=== PATIENT | male | born 1935 | race Caucasian/White ===

== ENCOUNTER 2016-12-13 12:11 | Emergency (ER) | payer MEDICARE, OTHER ==
--- NOTE | 2016-12-14 19:43 | ER ---
ADMIT: 12/13/2016 RM/LOC: ER [facility] MR#: [id number] [address] [address] ADDIE GERONIMO [address] [place] [address] Emergency Room Report SEX: M AGE: 81 : 1935 DATE: 12/13/2016 TIME: 1211 hours. Please refer to my T-sheet for complete H and P. HISTORY OF PRESENT ILLNESS: Briefly, the patient is an 81-year-old, comes in for a fall today. He actually fell 2 weeks ago, bruised his chest. He had an x-ray that was negative at that time. He was going to the bathroom, his significant other was helping him when he fell again today hurt his leg. He has been able to walk on it, but she wanted him evaluated. He is anticoagulated, but did not hit his head or neck. PHYSICAL EXAMINATION: VITAL SIGNS: Blood pressure 107/42, pulse 95, respirations 18, temp 98.7, and sat 97%. GENERAL: He is in no acute distress. HEENT: Grossly normal. LUNGS: Clear. Chest wall, he is tender on the left anterior axillary line of his chest. He has no wheezes, good air movement, no severe crepitance is noted. ABDOMEN: Soft, nontender. EXTREMITIES: His left leg has a contusion posterior in his knee extending distally as knee seems intact. He is neurovascularly intact distally. NEUROLOGIC: Alert and oriented, nonfocal. EMERGENCY DEPARTMENT COURSE: CBC was normal except hemoglobin 11.4. Chemistries normal except creatinine 2.2, which is stable for him. UA was normal. Calcium was 7.9. His INR was unable to register on our machine, they say the machine does this at times, we repeated it same answer. His troponin was negative. EKG was AFib, rate 83, no changes. I had a long discussion with him. We are going to hold his Coumadin until he follows up. He was able to walk in the Emergency Department. His x-ray of his chest revealed atelectasis that was an irregular on the first rib, but his pain was lower, and there was no pneumothorax. Left knee showed no fracture. Pelvis, no fracture. Radiologist and I discussed this. ASSESSMENT: Leg and chest contusion, fall x2. Irregular INR. PLAN: Hold his Coumadin until he follows up with [facility]. Return if worse. Fall precautions. Rest and ice. Tommy Beach MD/ edna JOB #: [id number] CC: Elia Johnson MD, Attending Physician Mehran Huerta MD, Family Physician
[2016-12-18] MEDS ORDERED: ARICEPT DPS5 MG PO (19:57)
[2016-12-18] MEDS ORDERED: NEURONTIN DPS100 MG PO (19:58)
[2016-12-18] MEDS ORDERED: FLOMAX DPS0.4 MG PO (19:58)
[2016-12-18] MEDS ORDERED: LOPRESSOR DPS100 MG PO (19:58)
[2016-12-18] MEDS ORDERED: PROCARDIA XL DP30 MG PO (19:58)
[2016-12-18] MEDS ORDERED: NOVOLIN 70100 UNITS/ SQ (19:59)
[2016-12-18] MEDS ORDERED: VITAMIN D31000 UNIT PO (19:59)
[2016-12-18] MEDS ORDERED: NOVOLIN R100 UNIT/1 SQ (20:00)
== END 2016-12-13 15:58 | disposition home or self-care (01) ==
LOC: ER 12:11
DX: S20.212A Contusion of left front wall of thorax, initial encounter (principal); S80.02XA Contusion of left knee, initial encounter; I48.91 Unspecified atrial fibrillation; E11.9 Type 2 diabetes mellitus without complications; I10 Essential (primary) hypertension; N40.0 Benign prostatic hyperplasia without lower urinary tract symptoms; Z79.01 Long term (current) use of anticoagulants; Z79.4 Long term (current) use of insulin; Z79.899 Other long term (current) drug therapy; W19.XXXA Unspecified fall, initial encounter

== ENCOUNTER 2016-12-14 14:42 | Inpatient (IN) | payer MEDICARE, OTHER ==
[~2016-12-14] VITALS: Ht 180.3 cm; Wt 100.0 kg
[2016-12-18] MEDS ORDERED: ARICEPT DPS5 MG PO (19:57)
[2016-12-18] MEDS ORDERED: PROCARDIA XL DP30 MG PO (19:58)
[2016-12-18] MEDS ORDERED: LOPRESSOR DPS100 MG PO (19:58)
[2016-12-18] MEDS ORDERED: NEURONTIN DPS100 MG PO (19:58)
[2016-12-18] MEDS ORDERED: FLOMAX DPS0.4 MG PO (19:58)
[2016-12-18] MEDS ORDERED: NOVOLIN 70100 UNITS/ SQ (19:59)
[2016-12-18] MEDS ORDERED: VITAMIN D31000 UNIT PO (19:59)
[2016-12-18] MEDS ORDERED: NOVOLIN R100 UNIT/1 SQ (20:00)
--- NOTE | 2016-12-21 12:24 | HP ---
ADMIT: 12/14/2016 RM/LOC: [address] [facility] MR#: [id number] [facility]#: [id number] [id number] [place], [place] [address] ADDIE GERONIMO [address] [place] [address] History and Physical SEX: M AGE: 81 : 1935 DATE OF SERVICE: CHIEF COMPLAINT/HISTORY OF PRESENT ILLNESS: This 81-year-old male who was seen in the office. He had become increasingly weak. He has been taking more Coumadin and then was prescribed. His pro-times are up markedly. He was seen in the emergency room yesterday. He has had a prescription for Coumadin. He has had some falling spells. He has also had confusion. There was no loss of consciousness. He had no direct trauma to his head. PREVIOUS MEDICAL HISTORY: Generally, his health has been fair. His problems include chronic renal insufficiency. He has had depression. He has had memory loss. He has had chronic atrial fibrillation. Remote history of CVA. He has hypertension. He has had intermittent diarrhea. He has had osteoarthritis and chronic back pain. He has had previous carcinoma of the kidney. ALLERGIES: NONE KNOWN. FAMILY HISTORY: The father of liver disease. Mother of heart disease. His father also had hypertension. SOCIAL HISTORY: The patient is . He has worked and still continues to work. MEDICATIONS: Include vitamin D; Coumadin; Aricept; metoprolol; Nifediac; tamsulosin; Humulin insulin 70/30, 25 units in the morning; gabapentin 100 mg t.i.d.; and aspirin 81 mg daily. TRAVEL HISTORY: The patient usually goes down to [place] once a year, but he has not been down this year. REVIEW OF SYSTEMS: HEENT: The patient wears hearing aid. He is hard of hearing. He wears glasses. He has problems with memory loss. CARDIORESPIRATORY: The patient has not had problem with pneumonia. He has not had a myocardial infarction. He has never smoked. GI: There has been no nausea, vomiting, bloody stools, or diarrhea. He has had some difficulty with urine culture and he has had occasional reflux. : The patient has had renal calculi. He has had difficulty controlling urine. He has had nephrectomy. He has chronic urinary retention. The patient has had some chronic edema. He has also had hypertension with his chronic renal insufficiency. MUSCULOSKELETAL: The patient has a history of osteoarthritis with leg pains and chronic edema, chronic knee pain. PHYSICAL EXAMINATION: VITAL SIGNS: Blood pressure today is 148/84, temperature 98.2, respirations 18, pulse 74 and regular. BMI is 29.4, weight 217 pounds. GENERAL: The patient is an obese male, who is alert, who is cooperative. HEENT: Neck veins not distended. Thyroid not enlarged. ADMIT: 12/14/2016 RM/LOC: 522 [facility] MR#: [id number] [address] [place] [id number] WILLEMNATALIEADDIE HALE Jennifer [address] [place] [address] History and Physical SEX: M AGE: 81 : 1935 CHEST: Clear to percussion and auscultation. Abdomen: Soft, nontender. Liver is not enlarged. Spleen is not palpable. No abnormal masses are present. Femoral pulses are strong and equal bilaterally. ASSESSMENT: 1. Memory loss with mild confusion. 2. Hearing loss. 3. Visual impairment. 4. Mild confusion. 5. Marked over coagulation. 6. Falling spells. 7. History of cerebrovascular accident. 8. Chronic atrial fibrillation. 9. Chronic hypertension. 10.Status post nephrectomy. 11.Prostatic hypertrophy. 12.Diabetic neuropathy. 13.Insulin-dependent diabetes mellitus. Mehran Huerta MD/ modl JOB #: [id number] CC: Mehran Huerta, Attending Physician Mehran Huerta, Family Physician
--- NOTE | 2016-12-21 12:24 | DS ---
ADMIT: 12/16/2016 RM/LOC: 522 [facility] MR#: [id number] [address] [address] ADDIE GERONIMO [address] [place] [address] Discharge Summary SEX: M AGE: 81 : 1935 ADMISSION DATE: 12/16/2016 DISCHARGE DATE: 12/17/2016 HISTORY AND PHYSICAL: Please see the chart. LABORATORY AND X-RAY DATA: Please see the chart. CLINICAL COURSE: This 81-year-old male initially presented to the emergency room. He had falling spells, his blood was so thin it would not coagulate. He had been taking more Coumadin then ordered and initially it was discontinued. Because the blood was so thin he was given Aqua MEPHYTON intravenously. This did improve the prothrombin time. However, his hemoglobin dropped to 7.4. He was given a unit of blood and the hemoglobin only came up to 7.9, and for this reason I felt he was probably having some active bleeding and I am going to give him a second unit of blood and discontinue the Coumadin and aspirin until the hemoglobin stabilizes and we may reinstitute it. Until then, the patient is really quite weak, not walking well and he will be transferred to a snf for physical therapy. His blood sugars were mildly elevated and he is discharged on Aricept, Flomax, Lopressor, Neurontin, Procardia, vitamin D, Novolin insulin 70/30 at 25 units in the morning. He will be seen in the office in one week. FINAL DIAGNOSIS: 1. Over anticoagulation. 2. Probable active bleeding. 3. Insulin-dependent type 2 diabetes mellitus. 4. Chronic renal insufficiency. 5. Memory loss. 6. Status post CVA (cerebrovascular accident). 7. Chronic atrial fibrillation. 8. Hypertension. 9. Peripheral neuropathy from diabetes. Mehran Huerta MD/ malissa JOB #: [id number] CC: Mehran Huerta MD, Attending Physician Mehran Huerta MD, Family Physician
== END 2016-12-17 16:10 | DRG 918 ==
LOC: 5MS 14:42
PROC: 30233N1 Transfusion of Nonautologous Red Blood Cells into Peripheral Vein, Percutaneous Approach (ICD-10-PCS; principal; 2016-12-16)
DX: T45.511A Poisoning by anticoagulants, accidental (unintentional), initial encounter (principal); E11.40 Type 2 diabetes mellitus with diabetic neuropathy, unspecified; I48.2 Chronic atrial fibrillation; R58 Hemorrhage, not elsewhere classified; D64.9 Anemia, unspecified; F32.9 Major depressive disorder, single episode, unspecified; I12.9 Hypertensive chronic kidney disease with stage 1 through stage 4 chronic kidney disease, or unspecified chronic kidney disease; N18.9 Chronic kidney disease, unspecified; R33.9 Retention of urine, unspecified; K21.9 Gastro-esophageal reflux disease without esophagitis; E66.9 Obesity, unspecified; Z68.30 Body mass index [BMI] 30.0-30.9, adult; N40.1 Benign prostatic hyperplasia with lower urinary tract symptoms; M19.90 Unspecified osteoarthritis, unspecified site; M54.9 Dorsalgia, unspecified; Z79.4 Long term (current) use of insulin; Z90.5 Acquired absence of kidney; Z79.01 Long term (current) use of anticoagulants; Z86.73 Personal history of transient ischemic attack (TIA), and cerebral infarction without residual deficits; Z85.528 Personal history of other malignant neoplasm of kidney; Z66 Do not resuscitate